=== PATIENT | male | born 1980 | race African-American/Black ===

== ENCOUNTER 2025-04-17 15:15 | Emergency (ER) | payer OTHER ==
[~2025-04-17] VITALS: Ht 182.9 cm; Wt 118.0 kg
[2025-04-17 15:30] VITALS: TEMP 36.9; O2SAT 99
[2025-04-17 15:51] LABS: BASOPHILS % 1.3 % (0.0-2.0); EOSINOPHILS % 2.1 % (0.0-5.0); HEMATOCRIT. 48.5 % (42.0-52.0); HEMOGLOBIN. 16.3 g/dL (14.0-18.0); MEAN CORPUSCULAR HEMOGLOBIN 32.7 pg (28.0-32.0); MEAN CORPUSCULAR HGB CONC 33.5 g/dL (31.0-37.0); MEAN CORPUSCULAR VOLUME 97.5 fL (80.0-94.0); MEAN PLATELET VOLUME 9.1 fl (7.4-10.4); NEUTROPHILS % 52.6 % (40.0-76.0); PLATELET 206 x1000/uL (130-400); RED BLOOD CELL COUNT 4.98 mill/uL (4.7-6.1); RED CELL DISTRIBUTION WIDTH 13.1 % (11.6-14.6); WHITE BLOOD COUNT 5.6 x1000/uL (4.5-11.0)
[2025-04-17 16:00] LABS: CHLORIDE 104 mEq/L (98-107); POTASSIUM 4.3 mEq/L (3.5-5.1); SODIUM 139 mEq/L (136-145)
[2025-04-17 16:01] LABS: CALCIUM 9.5 mg/dL (8.7-10.4); CARBON DIOXIDE 29 mEq/L (21-32)
[2025-04-17 16:06] LABS: CREATININE 0.8 mg/dL (0.6-1.3); GLUCOSE 111 mg/dL (70-105); UREA NITROGEN BLOOD 10 mg/dL (9-23)
[2025-04-17] MEDS ORDERED: AMLO5TAB88 MT (16:56)
[2025-04-17] MEDS: DIPHENHYDRAMINE 25MG CAPSULE PO ONE (17:22)
[2025-04-17] MEDS: KETOROLAC 30MG/ML VIAL IM ONE (17:22)
[2025-04-17] MEDS: METOCLOPRAMIDE HCL 10MG TABLET PO ONE (17:22)
[2025-04-17 17:36] VITALS: BP 168/114; PULSE 80; RESP 18; O2SAT 100
== END 2025-04-17 17:37 | disposition home or self-care (01) ==
LOC: ER 15:15
DX: G44.209 Tension-type headache, unspecified, not intractable (principal); I10 Essential (primary) hypertension; Z79.899 Other long term (current) drug therapy
CPT/HCPCS: 99283; 80048; 85025; 36415; 96372; J1885; Q0163; J8597